=== PATIENT | male | born 1990 | race Hispanic/Latino ===

== ENCOUNTER 2017-06-04 09:53 | Emergency (ER) | payer OTHER ==
[2017-06-04 10:21] VITALS: BMI 41.5
--- NOTE | 2017-06-04 10:28 | ED PDOC ---
HPI: Psych/Substance Abuse Time Seen by Provider: 06/04/17 10:04 Chief Complaint (Nursing): Substance Abuse Chief Complaint (Provider): heroine abuse History Per: Patient History/Exam Limitations: no limitations Onset/Duration Of Symptoms: Days Current Symptoms Are (Timing): Still Present Additional Complaint(s): Pt. was disoriented at home so girlfriend called EMS. Pt. states he used heroine few hours ago and so was in this state. Uses it daily. No chest pain, dyspnea, fever, cough, dizziness, nausea, vomit, diarrhea. Pt. states he did not fall or hit head. No weakness. Feels back to baseline currently. Not suicidal or homicidal. No alcohol. Past Medical History Reviewed: Nursing Documentation, Vital Signs - Medical History PMH: No Chronic Diseases - Surgical History Surgical History: No Surg Hx - Family History Family History: States: Unknown Family Hx - Social History Current smoker - smoking cessation education provided: No Alcohol: None Drugs: Opiates - Allergies Allergies/Adverse Reactions: Allergies Allergy/AdvReac Type Severity Reaction Status Date / Time No Known Allergies Allergy Verified 06/04/17 10:06 Review of Systems Constitutional: Negative for: Weakness Eyes: Negative for: Vision Change ENT: Negative for: Nose Congestion Cardiovascular: Negative for: Chest Pain, Palpitations, Orthopnea, Edema, Light Headedness Respiratory: Negative for: Shortness of Breath Gastrointestinal: Negative for: Nausea, Vomiting, Abdominal Pain, Diarrhea Musculoskeletal: Negative for: Neck Pain, Shoulder Pain, Arm Pain Skin: Negative for: Rash Neurological: Negative for: Weakness, Numbness Psych: Negative for: Suicidal ideation Physical Exam - Reviewed Nursing Documentation Reviewed: Yes Vital Signs Reviewed: Yes - Physical Exam Appears: Positive for: Non-toxic, No Acute Distress Head Exam: Positive for: ATRAUMATIC, NORMAL INSPECTION, NORMOCEPHALIC Skin: Positive for: Normal Color, Warm, DRY Eye Exam: Positive for: EOMI, Normal appearance, PERRL ENT: Positive for: Normal ENT Inspection Neck: Positive for: Normal, Painless ROM Cardiovascular/Chest: Positive for: Regular Rate, Rhythm Respiratory: Positive for: CNT, Normal Breath Sounds Gastrointestinal/Abdominal: Positive for: Normal Exam, Bowel Sounds, Soft. Negative for: Tenderness Back: Positive for: Normal Inspection. Negative for: L CVA Tenderness, R CVA Tenderness Extremity: Positive for: Normal ROM, Other (L antecub with injection jeffrey). Negative for: Tenderness, Pedal Edema Neurologic/Psych: Positive for: Alert, head stock operator II-XII, Oriented. Negative for: Motor/Sensory Deficits - Progress ED Course And Treament: 1247: Stable. Crisis saw pt. Does not meet criteria for admit. Pt. aaox3. Tolerated PO. Ambulated with no issues. present and will take pt. home. Disposition - Clinical Impression Clinical Impression: Drug abuse - Patient ED Disposition Is Patient to be Admitted: No Counseled Patient/Family Regarding: Diagnosis, Need For Followup - Disposition Referrals: [facility] [Outside] - 06/05/17 [facility] [Outside] - 06/05/17 Disposition: Routine/Home Disposition Time: 12:48 Condition: STABLE Additional Instructions: Return if not better in 3 days. Instructions: Polysubstance Abuse (ED) Forms: Brain in Hand ([place]vian)
[2017-06-04 10:38] VITALS: TEMP 98.4
[2017-06-04 13:07] VITALS: BP 124/75; PULSE 88; RESP 14; O2SAT 100
--- NOTE | 2017-06-05 07:38 | CARD ---
APPROVED REPORT EKG Measurement Heart [id number] <Conclusion> Sinus tachycardia Possible Left atrial enlargement Nonspecific T wave abnormality Abnormal ECG
== END 2017-06-04 13:06 | disposition home or self-care (01) ==
LOC: H.ER 09:53
DX: F19.20 Other psychoactive substance dependence, uncomplicated (principal)